=== PATIENT | female | born 1985 | race Caucasian/White ===

== ENCOUNTER 2020-06-16 14:15 | Observation (INO) | payer MEDICAID ==
[~2020-06-16] VITALS: Ht 157.5 cm; Wt 83.5 kg
[2020-06-16] MEDS ORDERED: PREN1TAB78 MT (15:48)
== END 2020-06-16 15:50 | disposition home or self-care (01) ==
LOC: 8 EST LDRP 14:15
PROVIDERS: ADMIT Obstetrics & Gynecology; ATTEND Obstetrics & Gynecology
DX: O99.89 Other specified diseases and conditions complicating pregnancy, childbirth and the puerperium (principal); O42.92 Full-term premature rupture of membranes, unspecified as to length of time between rupture and onset of labor; M54.5 Low back pain; Z3A.38 38 weeks gestation of pregnancy
CPT/HCPCS: 59025; G0378; 99281

== ENCOUNTER 2020-06-17 06:19 | Inpatient (IN) | payer MEDICAID ==
[~2020-06-17] VITALS: Ht 139.7 cm; Wt 74.4 kg
[~2020-06-17 06:19] MED LIST: PREN1TAB78 MT
[2020-06-17] MEDS ORDERED: LACTATED RINGERS 1,000 ML IV SCH (06:55)
[2020-06-17] MEDS ORDERED: METHYLERGONOVINE MALEATE 0.2 MG/ML IM PRN (07:00)
[2020-06-17 07:26] LABS: BASOPHILS % 1.3 % (0.0-2.0); HEMATOCRIT. 37.8 % (36.0-48.0); HEMOGLOBIN. 13.1 g/dL (12.0-16.0); LYMPHOCYTES % 17.1 % (20.0-50.0); MEAN CORPUSCULAR HEMOGLOBIN 29.4 pg (28.0-32.0); MEAN PLATELET VOLUME 8.4 fl (7.4-10.4); MONOCYTES % 5.3 % (2.0-8.0); NEUTROPHILS % 70.3 % (40.0-76.0); PLATELET 311 x1000/uL (130-400); RED BLOOD CELL COUNT 4.44 mill/uL (4.2-5.4); RED CELL DISTRIBUTION WIDTH 13.8 % (11.6-14.6)
[2020-06-17] MEDS ORDERED: NALOXONE HCL 0.4 MG/ML 1ML VIAL IV PRN (07:30)
[2020-06-17] MEDS ORDERED: METOCLOPRAMIDE HCL 10MG/2ML VIAL IV PRN (07:30)
[2020-06-17] MEDS ORDERED: MORPHINE SULFATE 4 MG/ML CPJ (NOT FOR IM USE) IV PRN (07:30)
[2020-06-17] MEDS ORDERED: KETOROLAC 30MG/ML VIAL IM SCH (07:30)
[2020-06-17] MEDS ORDERED: ONDANSETRON HCL 4MG/2ML INJ IV PRN ×2 (07:30→09:00)
[2020-06-17] MEDS ORDERED: DIPHENHYDRAMINE 50MG/ML VIAL IV PRN ×2 (07:30)
[2020-06-17] MEDS ORDERED: FENTANYL CITRATE/PF 50MCG/ML 2ML VIAL IV PRN (07:30)
[2020-06-17] MEDS ORDERED: KETOROLAC 30MG/ML VIAL IV SCH (07:30)
[2020-06-17 07:32] LABS: CLARITY URINE CLOUDY (CLEAR); COLOR URINE YELLOW (YELLOW); KETONES URINE 2+ (NEGATIVE); LEUKOCYTE ESTERASE URINE TRACE (NEGATIVE); NITRITE URINE NEGATIVE (NEGATIVE); OCCULT BLOOD URINE 2+ (NEGATIVE); PROTEIN URINE NEGATIVE (NEGATIVE); SPECIFIC GRAVITY URINE 1.023 (1.005-1.030); UROBILINOGEN URINE 0.2 E.U./dL (0.2-1.0)
[2020-06-17] MEDS ORDERED: MORPHINE SULFATE/PF 1MG/ML 10ML AMP ONE (07:46)
[2020-06-17 07:47] LABS: METHADONE URINE SCREEN NEGATIVE (NEGATIVE)
[2020-06-17] MEDS ORDERED: SUCCINYLCHOLINE CHLORIDE 200MG/10ML IV ONE (07:47)
[2020-06-17] MEDS ORDERED: CEFAZOLIN SODIUM 1000MG/VIAL ONE (07:47)
[2020-06-17] MEDS ORDERED: EPHEDRINE SULFATE 50MG/ML VIAL ONE (07:47)
[2020-06-17] MEDS ORDERED: OXYTOCIN 10 UNITS/ML 1ML ONE (07:47)
[2020-06-17 07:48] LABS: *AMPHETAMINES SCREEN URINE NEGATIVE (NEGATIVE); *BARBITURATES SCREEN URINE NEGATIVE (NEGATIVE); *BENZODIAZEPINES SCREEN URINE NEGATIVE (NEGATIVE); *COCAINE SCREEN URINE NEGATIVE (NEGATIVE); CANNABINOID URINE SCREEN NEGATIVE (NEGATIVE); OPIATES URINE SCREEN NEGATIVE (NEGATIVE); PHENCYCLIDINE URINE SCREEN NEGATIVE (NEGATIVE)
[2020-06-17] MEDS ORDERED: ONDANSETRON HCL 4MG/2ML INJ ONE (07:58)
[2020-06-17 08:08] LABS: INR 0.9; PROTHROMBIN TIME 9.4 sec (9.6-11.0)
[2020-06-17] MEDS ORDERED: DEXT 5%/LR + PITOCIN 20UNITS/L 1,000 ML IV ONE (08:45)
[2020-06-17] MEDS ORDERED: DEXT 5%/LR + PITOCIN 20UNITS/L 1,000 ML IV SCH (08:48)
[2020-06-17] MEDS ORDERED: IBUPROFEN 400MG TABLET PO PRN (09:00)
[2020-06-17] MEDS ORDERED: HYDROCODONE/ACETAMINOPHEN 5/325MG TABLET PO PRN (09:00)
[2020-06-17] MEDS ORDERED: BISACODYL 10MG SUPP PR PRN (09:00)
[2020-06-17] MEDS ORDERED: DIPHENHYDRAMINE 25MG CAPSULE PO PRN (09:00)
[2020-06-17] MEDS ORDERED: HEMORRHOIDAL SUPP PR PRN (09:00)
[2020-06-17] MEDS ORDERED: LANOLIN OINT 7GM TUBE TOP PRN (09:00)
[2020-06-17 11:00] VITALS: BP 90/52
[2020-06-17 12:00] VITALS: BP 96/52
[2020-06-17 13:34] LABS: HEPATITIS B SURFACE ANTIGEN NEGATIVE
[2020-06-17 15:00] VITALS: BP 90/52
[2020-06-17 20:00] VITALS: BP 93/58
[2020-06-17] MEDS: DOCUSATE SODIUM 100MG CAPSULE PO SCH (21:41)
[2020-06-17] MEDS: SIMETHICONE 80MG TABLET CHEW PO SCH (21:42)
[2020-06-17] MEDS: KETOROLAC 30MG/ML VIAL IV SCH (21:47)
[2020-06-18] VITALS: BP 96/50
[2020-06-18 04:00] VITALS: BP 89/52
[2020-06-18] MEDS: KETOROLAC 30MG/ML VIAL IV SCH (04:02)
[2020-06-18 05:58] LABS: BASOPHILS % 0.6 % (0.0-2.0); EOSINOPHILS % 9.3 % (0.0-5.0); HEMATOCRIT. 29.9 % (36.0-48.0); LYMPHOCYTES % 18.6 % (20.0-50.0); MEAN CORPUSCULAR VOLUME 86.4 fL (81.0-99.0); MEAN PLATELET VOLUME 7.2 fl (7.4-10.4); MONOCYTES % 7.8 % (2.0-8.0); NEUTROPHILS % 63.7 % (40.0-76.0); PLATELET 221 x1000/uL (130-400); RED BLOOD CELL COUNT 3.46 mill/uL (4.2-5.4); RED CELL DISTRIBUTION WIDTH 13.8 % (11.6-14.6)
[2020-06-18 07:30] VITALS: BP 90/52
[2020-06-18] MEDS: FERROUS SULFATE 325MG TABLET PO SCH (08:14)
[2020-06-18] MEDS: SIMETHICONE 80MG TABLET CHEW PO SCH ×2 (08:14→21:05)
[2020-06-18] MEDS: IBUPROFEN 800MG TABLET PO PRN ×2 (08:14→14:40)
[2020-06-18] MEDS: PRENATAL VIT/FE FUMARATE/FA TABLET PO SCH (08:14)
[2020-06-18 13:45] VITALS: BP 90/54
[2020-06-18 20:10] VITALS: BP 102/48
[2020-06-18] MEDS: DOCUSATE SODIUM 100MG CAPSULE PO SCH (21:05)
[2020-06-19] MEDS: IBUPROFEN 800MG TABLET PO PRN ×2 (00:38→08:50)
[2020-06-19 04:00] VITALS: BP 96/50
[2020-06-19 07:30] VITALS: BP 90/50
[2020-06-19] MEDS: PRENATAL VIT/FE FUMARATE/FA TABLET PO SCH (08:49)
[2020-06-19] MEDS: FERROUS SULFATE 325MG TABLET PO SCH (08:49)
[2020-06-19] MEDS: SIMETHICONE 80MG TABLET CHEW PO SCH (08:49)
== END 2020-06-19 12:30 | disposition home or self-care (01) | DRG 540 ==
LOC: 8 EST LDRP 06:19 → OBSVTOIN 06:19 → 8 EST A/PP 10:47
PROVIDERS: ADMIT Obstetrics & Gynecology; ATTEND Obstetrics & Gynecology
PROC: 10D00Z1 Extraction of Products of Conception, Low, Open Approach (ICD-10-PCS; principal; 2020-06-17)
DX: O34.211 Maternal care for low transverse scar from previous cesarean delivery (principal); O99.62 Diseases of the digestive system complicating childbirth; K66.0 Peritoneal adhesions (postprocedural) (postinfection); Z79.899 Other long term (current) drug therapy; Z3A.38 38 weeks gestation of pregnancy; Z37.0 Single live birth
CPT/HCPCS: 36415; 80305; 81003; 85025; 86592; 86703; 86762; 86850; 86900; 86920; 87340; 88307; 99281; J0330; J0690; J1885; J2274; J2405; J2590; J3490